=== PATIENT | male | born 1955 | race African-American/Black ===

== ENCOUNTER 2019-03-24 15:53 | Emergency (ER) | payer OTHER ==
[2019-03-24 16:30] LABS: Bilirubin 2+ (Negative); Blood, Urine 1+ (Negative); Clarity Turbid (Clear); Glucose, Urine (Dipstick) 30 mg/dL (Negative); Leukocyte Negative Leu/uL (Negative); Nitrite Negative (Negative); Protein, Urine (Dipstick) 600 mg/dL (Neg-Trace); RBC/HPF 0-3 HPF (0-3); Squamous Epithelial 0-3 HPF (0-3); Urobilinogen 6 mg/dL (Less than 2); WBC/HPF 0-3 HPF (0-3)
[2019-03-24 16:40] LABS: Bacteria/HPF None Seen HPF (None Seen); Mucous/LPF 2+ LPF (<2+)
[2019-03-24] MEDS ORDERED: Ondansetron ODT 4 MG TAB ONE (17:24)
[2019-03-24 17:31] LABS: Hemoglobin 15.4 g/dL (14.0-18.0); Mean Corpuscular Hemoglobin 32.8 pg (27.0-31.0); Mean Corpuscular Volume 96.3 fL (78.0-98.0); Mean Platelet Volume 7.2 fL (7.4-10.4); Platelet Count 261 thou/uL (130-400); RBC Distribution Width 13.2 % (11.5-14.5); Red Blood Cell (RBC) Count 4.71 mill/uL (4.70-6.10)
[2019-03-24 17:33] LABS: #Monocytes 0.9 thou/uL (0.11-0.59); #Neutrophils 4.1 thou/uL (1.40-6.50); %Basophils 0.2 % (0.0-1.0); %Eosinophils 0.6 % (0.0-10.0); %Lymphocytes 28.8 % (21.0-51.0); %Monocytes 12.3 % (0.0-10.0); %Neutrophils 58.2 % (42.0-75.0); White Blood Cell (WBC) Count 7.1 thou/uL (4.8-10.8)
[2019-03-24] MEDS ORDERED: Ondansetron PF 4 MG/2 ML Vial ONE (17:41)
[2019-03-24 17:46] LABS: ALT (SGPT) 44 U/L (8-55); AST (SGOT) 43 U/L (5-34); Albumin 5.1 g/dL (3.4-4.8); Alkaline Phosphatase 59 U/L (40-110); Anion Gap 25 mmol/L (10-20); BUN (Urea Nitrogen) 18 mg/dL (8.4-25.7); Bilirubin, Total 2.9 mg/dL (0.2-1.2); Calc. Creatinine Clearance 0 mL/min (70-130); Calcium 10.6 mg/dL (7.8-10.44); Carbon Dioxide 19 mmol/L (23-31); Chloride 96 mmol/L (98-107); Estimated GFR-MDRD 51; Globulin 4.7 g/dL (2.4-3.5); Glucose 139 mg/dL (80-115); Lipase 28 U/L (8-78); Protein, Total 9.8 g/dL (5.8-8.1); Sodium 135 mmol/L (136-145)
--- NOTE | 2019-03-24 18:14 | CT ---
CT ABDOMEN AND PELVIS WITH CONTRAST: 03/24/19 HISTORY: Abdominal pain with vomiting. FINDINGS: Lung bases are clear. Liver shows fatty replacement. Spleen and pancreas unremarkable. Gallbladder mildly distended. Small bowel loops normal caliber. Appendix not definitely identified. No evidence of appendicitis. [place] unremarkable. Aorta normal caliber. No free fluid or mass. Images through pelvis unremarkable. Images of the osseous structures reveal a rounded lucent lesion involving the left ilium of uncertain significance. No other osseous lesion identified. The adrenal glands, kidneys and urinary tract appear unremarkable. IMPRESSION: 1. No acute intra-abdominal process. Gallbladder is mildly distended but no significant perichol ecystic inflammation is seen. Gallstones may not be apparent on CT. 2. A nonspecific lucent lesion involving the left ilium. Metastatic lesion is not excluded. No o ther osseous abnormality identified. POS: [facility]
[2019-03-24] MEDS ORDERED: Multivitamins, Adult 10 ML, Thiamine HCl 100 MG, Folic Acid 1 MG in Dextrose 5 %-0.45 %... IV SCH (22:00)
== END 2019-03-25 00:13 ==
LOC: ERS 15:53
DX: E86.0 Dehydration (principal); N17.9 Acute kidney failure, unspecified; R11.2 Nausea with vomiting, unspecified; R10.9 Unspecified abdominal pain
CPT/HCPCS: 36415; 74177; 80053; 81003; 81015; 82550; 83605; 83690; 85025; 96361; 96365; 96366; 96375; J2405; J3411; J7042; Q0162

== ENCOUNTER 2020-10-13 06:59 | Outpatient (CLI) | payer OTHER ==
[2020-10-13] MEDS ORDERED: Iopamidol 370 76% 100 ML VIAL ONE (14:42)
== END 2020-10-13 07:00 | disposition home or self-care (01) ==
LOC: CT 06:59 → NM 07:00
PROVIDERS: ATTEND Urology
DX: C61 Malignant neoplasm of prostate (principal); R31.29 Other microscopic hematuria; E83.52 Hypercalcemia; R17 Unspecified jaundice; R93.89 Abnormal findings on diagnostic imaging of other specified body structures; K76.0 Fatty (change of) liver, not elsewhere classified; K80.20 Calculus of gallbladder without cholecystitis without obstruction
CPT/HCPCS: 74178; 78306; 82565; A9503; Q9967

== ENCOUNTER 2020-11-22 08:16 | Outpatient (CLI) | payer OTHER ==
[2020-11-22] MEDS ORDERED: Magnevist 469MG/ML 20 ML VIAL ONE (09:53)
== END 2020-11-22 08:17 | disposition home or self-care (01) ==
LOC: TBSIIMAG 08:16
PROVIDERS: ATTEND Urology
DX: C61 Malignant neoplasm of prostate (principal)
CPT/HCPCS: 72197; A9579

== ENCOUNTER 2021-01-17 07:53 | Outpatient (CLI) | payer OTHER ==
[2021-01-17] MEDS ORDERED: Iopamidol-370 76% 500 ML 1 ML ONE (09:44)
== END 2021-01-17 07:54 | disposition home or self-care (01) ==
LOC: RAD 07:53
PROVIDERS: ATTEND Urology
DX: C61 Malignant neoplasm of prostate (principal); N32.3 Diverticulum of bladder; T85.638A Leakage of other specified internal prosthetic devices, implants and grafts, initial encounter
CPT/HCPCS: 51600; 74430; Q9967

== ENCOUNTER 2022-04-18 15:58 | Emergency (ER) | payer OTHER | END 2022-04-18 18:33 | disposition home or self-care (01) | LOC: ERS 15:58 | DX: J01.90 Acute sinusitis, unspecified (principal); H66.92 Otitis media, unspecified, left ear | CPT/HCPCS: 99283 ==

== ENCOUNTER 2023-05-20 14:24 | Outpatient (CLI) | payer OTHER | END 2023-05-20 14:25 | disposition home or self-care (01) | LOC: BICULT 14:24 | PROVIDERS: ATTEND Internal Medicine Nephrology | DX: N18.9 Chronic kidney disease, unspecified (principal); K80.20 Calculus of gallbladder without cholecystitis without obstruction | CPT/HCPCS: 76770 ==

== ENCOUNTER → 2024-04-29 | Outpatient (CLI) | payer OTHER ==
[2024-05-04 12:05] LABS: Anion Gap 16 mmol/L (10-20); BUN (Urea Nitrogen) 15 mg/dL (8.4-25.7); Calc. Creatinine Clearance 0 mL/min (70-130); Calcium 9.8 mg/dL (7.8-10.44); Carbon Dioxide 22 mmol/L (23-31); Chloride 107 mmol/L (98-107); Estimated GFR 52; Glucose 96 mg/dL (80-115); Potassium 4.1 mmol/L (3.5-5.1); Sodium 141 mmol/L (136-145)
== END ==
LOC: LABBT 13:57
PROVIDERS: ATTEND Urology
DX: Z01.818 Encounter for other preprocedural examination (principal); N52.9 Male erectile dysfunction, unspecified
CPT/HCPCS: 71046; 80048; 87086

== ENCOUNTER → 2024-05-07 | Day surgery (SDC) | payer OTHER ==
[2024-05-06 09:35] VITALS: BMI 21.4
[~2024-05-07] MED LIST: Aztreonam 1 GM in Sodium Chloride 0.9% 100 ML IVPB SCH; Bacitracin Zinc Ointment 30 gm TUBE ONE; Bupivacaine 0.25% HCL 30 ML VIAL ONE; Dexamethasone 4 mg/ml Vial ONE; Gentamicin 80 MG/2 ML VIAL ONE; Glycopyrrolate 0.2 MG/ML 5 ML SYRINGE ONE; HYDROmorphone 0.5 MG/0.5 ML SYRINGE ONE; Lidocaine 2% PF 5 ML VIAL ONE; Ondansetron PF 4 MG/2 ML Vial ONE; PHENYLEPHRINE-NS 100 MCG/ML 10 ML SYRINGE ONE; PROPOFOL 20 ML ONE; Vancomycin 1 GM VIAL ONE; Vancomycin 1 GM in Premix 1 BAG IVPB SCH; Vancomycin 1 GM/200 ML (FROZEN) BAG ONE; ePHEDrine Sulfate 50 MG/10 ML VIAL ONE; fentaNYL 50 mcg/mL 1 mL Vial ONE; fentaNYL PF 100 MCG/2 ML SYRINGE ONE
== END ==
LOC: SDC 05:22
PROVIDERS: ATTEND Urology
PROC: 0VUS0JZ Supplement Penis with Synthetic Substitute, Open Approach (ICD-10-PCS; principal; 2024-05-07)
DX: N52.34 Erectile dysfunction following simple prostatectomy (principal); I10 Essential (primary) hypertension; E78.5 Hyperlipidemia, unspecified; F41.9 Anxiety disorder, unspecified; N40.0 Benign prostatic hyperplasia without lower urinary tract symptoms; H26.9 Unspecified cataract; Z85.46 Personal history of malignant neoplasm of prostate; Z88.8 Allergy status to other drugs, medicaments and biological substances; Z88.6 Allergy status to analgesic agent
CPT/HCPCS: A4314; C1713; C1813; J0457; J0665; J1100; J1580; J2405; J2704; J3010; J3370; J3370-JW